=== PATIENT | male | born 1995 | race Caucasian/White ===

== ENCOUNTER 2018-05-18 15:01 | Outpatient (CLI) | payer BC | END 2018-05-18 15:02 | disposition home or self-care (01) | LOC: CTENTCT 15:01 | PROVIDERS: ATTEND Otolaryngology Plastic Surgery within the Head & Neck | DX: J33.9 Nasal polyp, unspecified (principal) | CPT/HCPCS: 70486 ==

== ENCOUNTER 2018-06-17 07:57 | Day surgery (SDC) | payer BC ==
[2018-06-16 16:33] VITALS: BMI 21.8
[2018-06-17] MEDS ORDERED: Oxymetazoline HCl 0.05% ( 15 ML ) ONE ×2 (09:59→10:31)
[2018-06-17] MEDS ORDERED: Midazolam HCl 2 mg/2 ml Vial ONE (10:06)
[2018-06-17] MEDS ORDERED: Lidocaine 1% w/Epinephrine 1:100K 20 ML VIAL ONE (10:31)
[2018-06-17] MEDS ORDERED: Fentanyl 100 MCG/2 ML VIAL ONE ×2 (10:33→11:50)
[2018-06-17] MEDS ORDERED: Dexamethasone 20 MG/5 ML VIAL ONE (15:17)
[2018-06-17] MEDS ORDERED: Ondansetron PF 4 MG/2 ML Vial ONE (15:17)
[2018-06-17] MEDS ORDERED: Lidocaine 1% PF 5 ML VIAL ONE (15:17)
[2018-06-17] MEDS ORDERED: PROPOFOL 200 MG/20 ML VIAL ONE (15:17)
--- NOTE | 2018-06-19 08:15 | OP ---
DATE OF PROCEDURE: 06/17/2018 PREOPERATIVE DIAGNOSES: 1. Chronic rhinosinusitis. 2. Allergic fungal sinusitis. 3. Nasal polyposis. 4. Bilateral inferior turbinate hypertrophy. POSTOPERATIVE DIAGNOSES: 1. Chronic rhinosinusitis. 2. Allergic fungal sinusitis. 3. Nasal polyposis. 4. Bilateral inferior turbinate hypertrophy. PROCEDURES PERFORMED: 1. Bilateral endoscopic sinus surgery, total ethmoidectomy with removal of tissue on the left. 2. Bilateral endoscopic sinus surgery, maxillary antrostomy with removal of tissue on the left. 3. Bilateral endoscopic sinus surgery, frontal sinusotomy with removal of tissue on the left. 4. Bilateral inferior turbinate submucosal resection. ESTIMATED BLOOD LOSS: 20 mL. COMPLICATIONS: None. ANESTHESIA: GETA. DESCRIPTION OF PROCEDURE: The patient was taken to the operating room and placed supine on the table. General endotracheal anesthesia was obtained by the anesthesia staff. Tube was secured in the left lower lip. The patient was then placed in a beach chair position. Afrin pledgets were placed in the nasal cavity. Following this, the patient was prepped and draped for standard nasal procedure. Following this, the 0-degree endoscope was advanced in the nasal cavity. A large left nasal cavity polyp arising from the left maxillary sinus and the left ethmoidal sinus. It was noted to be completely following the left nasal cavity and extending down the left nasopharynx and to the oropharynx. The 0-degree microdebrider was used to remove the majority of the middle portion of this polyp releasing the distal portion. The distal portion was so large, it had to be delivered through the mouth with medial forceps. Following this, the middle turbinates were gently medialized bilaterally with a Callaway elevator and the uncinate process was identified and was resected bilaterally using up-biting Blakesley forceps and the curved microdebrider. Following this, the natural maxillary sinus on the right side was further widened using the curved microdebrider. On the left side, nasal polyp and tissue from left maxillary sinus were removed using the curved microdebrider. Following this, ethmoidal bulla was identified and was punctured on its medial and inferior aspect and was removed using the microdebrider bilaterally. Thick polyp tissue was removed from the left side. Following this, the grand lamella was identified and was punctured into the posterior ethmoidal cells, working from posterior to anterior, the ethmoidal cells were opened in a mucosal-sparing technique using the 0-degree microdebrider and up-biting Blakesley forceps. Following this, 45-degree scope and the curved microdebrider were used to further open the frontal recess cells and open the frontal sinus ostia bilaterally. Following this, the nasal cavity was irrigated. Mirapex was placed within the middle meatus bilaterally. The inferior turbinates were then punctured on the anterior and inferior aspect with submucosal microdebrider and submucosal resection was performed of the anterior and inferior portions of the inferior turbinate bilaterally. The patient tolerated the procedure well. Job ID: [id number]
== END 2018-06-17 15:13 | disposition home or self-care (01) ==
LOC: SDC 07:57
PROVIDERS: ATTEND Otolaryngology Plastic Surgery within the Head & Neck
PROC: 09BT8ZX Excision of Left Frontal Sinus, Via Natural or Artificial Opening Endoscopic, Diagnostic (ICD-10-PCS; principal; 2018-06-17)
PROC: 09BL0ZZ Excision of Nasal Turbinate, Open Approach (ICD-10-PCS; principal; 2018-06-17)
PROC: 09BR8ZX Excision of Left Maxillary Sinus, Via Natural or Artificial Opening Endoscopic, Diagnostic (ICD-10-PCS; principal; 2018-06-17)
PROC: 09TV8ZZ Resection of Left Ethmoid Sinus, Via Natural or Artificial Opening Endoscopic (ICD-10-PCS; principal; 2018-06-17)
PROC: 09BV8ZX Excision of Left Ethmoid Sinus, Via Natural or Artificial Opening Endoscopic, Diagnostic (ICD-10-PCS; principal; 2018-06-17)
PROC: 09TU8ZZ Resection of Right Ethmoid Sinus, Via Natural or Artificial Opening Endoscopic (ICD-10-PCS; principal; 2018-06-17)
DX: J32.4 Chronic pansinusitis (principal); J33.9 Nasal polyp, unspecified; J30.89 Other allergic rhinitis; J34.3 Hypertrophy of nasal turbinates; Z79.899 Other long term (current) drug therapy; Z88.1 Allergy status to other antibiotic agents
CPT/HCPCS: 88304; J1100; J2001; J2250; J2405; J2704; J3010